=== PATIENT | male | born 1950 | race Hispanic/Latino ===

== ENCOUNTER 2018-10-31 20:16 | Emergency (ER) | payer MEDICARE ==
[~2018-10-31] VITALS: Ht 170.2 cm; Wt 104.3 kg
--- OUTSIDE RECORDS SUMMARY | 2018-10-31 20:20 | XMS REPORT | Continuity of Care Document ---
Author Author [employer] Address Unknown Phone Unavailable Care Team Providers Care Quality Process Lead Name Role Phone [employer] Unavailable Unavailable Problems Problem Status Onset Date Classification Date Reported Comments Source EDEMA Active 12/05/2012 Condition 12/05/2012 Medical Group DIABETES MELLITUS Active 12/05/2012 Condition 12/05/2012 Medical Group HYPERTENSION Active 12/05/2012 Condition 12/05/2012 Medical Group Medications Medication Details Route Status Patient Instructions Ordering Provider Order Date Source CARVEDILOL 6.25 MG TABS 1 PO BID Active 12/06/2012 Medical Group LISINOPRIL 40 MG TABS 1 po qd Active 12/04/2012 Medical Group AMLODIPINE BESYLATE 10 MG TABS 1 po qd Active 12/04/2012 Medical Group METFORMIN HCL 1000 MG TABS 1 po bid Active 12/04/2012 Medical Group LYRICA 100 MG CAPS 1 po tid Active 12/04/2012 Medical Group VICTOZA 18 MG/3ML SOLN 30 before lunch Active 12/04/2012 Medical Group CRESTOR 10 MG TABS 1 po qhs Active 12/04/2012 Medical Group LANTUS SOLOSTAR 100 UNIT/ML SOLN 60 units inj qhs Active 12/04/2012 Medical Group APIDA 10MG 1 before dinner Active 12/04/2012 [facility] Allergies, Adverse Reactions, Alerts No Known Medication Allergies Immunizations No Data Provided for This Section Results No Data Provided for This Section Pathology Reports No Data Provided for This Section Diagnostic Reports No Data Provided for This Section Consultation Notes No Data Provided for This Section Discharge Summaries No Data Provided for This Section History and Physicals No Data Provided for This Section Vital Signs Vital Sign Value Date Comments Source Height 66 12/05/2012 Medical Group Weight 235 12/05/2012 Medical Group Systolic (mm Hg) 155 12/05/2012 [facility] Diastolic (mm Hg) 87 12/05/2012 [facility] Heart Rate 98 12/05/2012 [facility] Encounters Location Location Details Encounter Type Encounter Number Reason For Visit Attending Provider ADM Date DC Date Status Source [facility] Cardiology [place] Office Visit [id number] Torsten Garcia MD 12/05/2012 12/05/2012 Medical Group Procedures No Data Provided for This Section Assessment and Plan No Data Provided for This Section Plan of Care No Data Provided for This Section Social History No Data Provided for This Section Family History No Data Provided for This Section Advance Directives No Data Provided for This Section Functional Status No Data Provided for This Section
--- OUTSIDE RECORDS SUMMARY | 2018-10-31 20:20 | XMS REPORT | Continuity of Care Document ---
Author Author [facility] Organization [facility] Address Unknown Phone Unavailable Care Team Providers Care Senior Animal Trainer Name Role Phone Torsten Garcia MD, PP Unavailable Insurance Providers Payer name Policy type / Coverage type Policy ID Covered democrat ID Policy Chin KASSI MCDERMOTT Shaye ALLANJuliusKRISTINE (PPO) Encounters Encounter Performer Location Date Office Visit Torsten Garcia MD [facility] Cardiology [place] Dec 05, 2012 Problems Problem Effective Dates Problem Status EDEMA Dec 05, 2012 Active DIABETES MELLITUS Dec 05, 2012 Active HYPERTENSION Dec 05, 2012 Active Procedures Date Description Comments Dec 05, 2012 smoking status former smoker Medications Medication Instructions Start Date Status LISINOPRIL 40 MG TABS 1 po qd Dec 04, 2012 Active AMLODIPINE BESYLATE 10 MG TABS 1 po qd Dec 04, 2012 Active METFORMIN HCL 1000 MG TABS 1 po bid Dec 04, 2012 Active LYRICA 100 MG CAPS 1 po tid Dec 04, 2012 Active VICTOZA 18 MG/3ML SOLN 30 before lunch Dec 04, 2012 Active CRESTOR 10 MG TABS 1 po qhs Dec 04, 2012 Active LANTUS SOLOSTAR 100 UNIT/ML SOLN 60 units inj qhs Dec 04, 2012 Active APIDA 10MG 1 before dinner Dec 04, 2012 Active CARVEDILOL 6.25 MG TABS 1 PO BID Dec 06, 2012 Active Vital Signs Date Description Test Result Dec 05, 2012 height E&M - 8302-2 HEIGHT 66 in Dec 05, 2012 weight E&M - 3141-9 WEIGHT 235 lb Dec 05, 2012 blood pressure, systolic, sitting, left arm BP SYS SIT L 155 mm Hg Dec 05, 2012 blood pressure, diastolic, sitting, left arm BP ABRAHAM SIT L 87 mm Hg Dec 05, 2012 pulse rate, sitting, left PULSE SIT L 98 /min Dec 05, 2012 blood pressure, systolic - 8480-6 BP SYSTOLIC 155 mm Hg Dec 05, 2012 pulse rate E&M - 8867-4 PULSE RATE 98 /min Dec 05, 2012 blood pressure, diastolic - 8462-4 BP DIASTOLIC 87 mm Hg
--- OUTSIDE RECORDS SUMMARY | 2018-10-31 20:20 | XMS REPORT ---
[facility] Address Unknown Phone Unavailable Care Team Providers Care Rv Detailer Name Role Phone Unavailable Unavailable Payers Payer Name Policy Type Policy Number Effective Date Expiration Date Problems This patient has no known problems. Allergies, Adverse Reactions, Alerts Allergy Name Allergy Type Status Severity Reaction(s) Onset Date Inactive Date Treating Clinician Comments No Known Allergies DA Active U 2018-01-16 00:00:00 Medications This patient has no known medications. Encounters Start Date/Time End Date/Time Encounter Type Admission Type Attending Clinicians Care Facility Care Department Encounter ID 2018-07-29 11:07:00 2018-07-29 11:07:00 Emergency E [facility] [id number] Results Test Description Test Time Test Comments Text Results Atomic Results Result Comments - XR CHEST 2 V 2018-06-26 11:58:00 Patient Name: CAYDEN QUEZADA Unit No: [id number] EXAMS: CPT CODE: [id number] XR CHEST 2 V 75339 Location code: B2 HISTORY: Cough, hypertension TECHNIQUE: Frontal and lateral views of the chest were obtained. FINDINGS: The cardiomediastinal silhouette is minimally enlarged. The trachea is midline. The lungs are clear. There is no effusion or pneumothorax. The bones are intact. IMPRESSION: Minimal cardiomegaly, without acute pulmonary process. at 1158 Reported and signed by: Darryl Mckeon M.D. CC: Kaci Victoria DO Technologist: Tricia Galicia RT(R) Transcrpt Date/Tm/Trnsp: 06/26/2018 ([id number]) [email or web address] Orig Print D/T: S: 06/26/2018 ([id number]) CLAUDIA Guillen NAME: [place] [address] PHYS: [place] [address] : 1950 AGE: 68 SEX: M LOC: [facility] PHONE #: [phone] EXAM DATE: 06/26/2018 STATUS: REG CLI FAX #: [phone] RADIOLOGY NO: [id number] PAGE 1 Signed Report
[2018-10-31] MEDS: HYDROCODONE/APAP 10MG-325MG TAB PO ONE (21:00)
--- NOTE | 2018-10-31 22:22 | Diagnostic Imaging Report ---
SHOULDER RIGHT COMPLETE - 3 views HISTORY: Pain COMPARISON: None available. FINDINGS: Bones: No acute displaced fracture. Osseous alignment is within normal limits. Joints: Mild degenerative changes of the right glenohumeral joint. Soft tissues: The soft tissues appear unremarkable. IMPRESSION: No acute radiographic abnormality. Signed by: Dr. Darline Barkley M.D. on 10/31/2018 10:18 PM
--- NOTE | 2018-10-31 22:22 | Diagnostic Imaging Report ---
WRIST COMPLETE LEFT, HAND 3+ VIEWS LEFT, FOREARM LEFT 2 VIEW - 3 views HISTORY: Pain status post fall. COMPARISON: None available. FINDINGS: Bones: No acute displaced fracture. Osseous alignment is within normal limits. Joints: Mild degenerative changes of the first carpometacarpal joint. Soft tissues: Vascular calcifications. IMPRESSION: No acute radiographic abnormality. Signed by: Dr. Darline Barkley M.D. on 10/31/2018 10:19 PM
--- NOTE | 2018-10-31 22:22 | Diagnostic Imaging Report ---
KNEE RIGHT THREE VIEWS - 3 views HISTORY: Pain. Fall. COMPARISON: None available. FINDINGS: Bones: No acute displaced fracture. Osseous alignment is within normal limits. Joints: The joint spaces are well-maintained. Soft tissues: Vascular calcifications. IMPRESSION: No acute radiographic abnormality. Signed by: Dr. Darline Barkley M.D. on 10/31/2018 10:18 PM
[2018-10-31] MEDS ORDERED: DIAZEPAM 2 MG TAB PO ONE (23:15)
[2018-10-31] MEDS ORDERED: NAPROXEN250 MG PO (23:55)
[2018-10-31] MEDS ORDERED: ROBAXIN-750750 MG PO (23:55)
[2018-11-01 01:01] VITALS: BP 151/67
== END 2018-11-01 01:00 | disposition home or self-care (01) ==
LOC: ER 20:16
DX: S83.411A Sprain of medial collateral ligament of right knee, initial encounter (principal); M25.511 Pain in right shoulder; M25.532 Pain in left wrist; W17.89XA Other fall from one level to another, initial encounter; Y93.01 Activity, walking, marching and hiking; Y92.488 Other paved roadways as the place of occurrence of the external cause
CPT/HCPCS: 99283

== ENCOUNTER 2018-12-22 01:39 | Emergency (ER) | payer MEDICARE ==
[~2018-12-22] VITALS: Ht 170.2 cm; Wt 104.3 kg
[~2018-12-22 01:39] MED LIST: NAPROXEN250 MG PO; ROBAXIN-750750 MG PO
--- OUTSIDE RECORDS SUMMARY | 2018-12-22 01:41 | XMS REPORT | Continuity of Care Document ---
Author Author [employer] Address Unknown Phone Unavailable Care Team Providers Care Geoscience Specialist Name Role Phone [employer] Unavailable Unavailable Problems Problem Status Onset Date [...] APIDA 10MG 1 before dinner Active 12/04/2012 [facility] Allergies, Adverse Reactions, Alerts No Known [...] Group Systolic (mm Hg) 155 12/05/2012 [facility] Diastolic (mm Hg) 87 12/05/2012 [facility] Heart Rate 98 12/05/2012 [facility] Encounters Location Location Details Encounter Type Encounter Number Reason For Visit Attending Provider ADM Date DC Date Status Source [facility] Cardiology [place] Office Visit [id number] Torsten Garcia MD 12/05/2012 12/05/2012 Medical Group [...]
[2018-12-22] MEDS ORDERED: SODIUM CHLORIDE 0.9% 1000ML 1,000 ML IV STA (02:32)
[2018-12-22] MEDS ORDERED: INSULIN REGULAR, HUMAN 100 UNIT/1 ML 3ML VIAL IV ONE (02:45)
[2018-12-22 03:24] LABS: ANION GAP 15.6 mmol/L (8-16); CALCIUM 9.1 mg/dL (8.4-10.2); CREATININE, SERUM 3.4 mg/dL (0.72-1.25); POTASSIUM 4.6 mmol/L (3.5-5.1)
[2018-12-22 04:21] VITALS: BP 144/73
== END 2018-12-22 04:38 | disposition home or self-care (01) ==
LOC: ER 01:39
DX: E11.65 Type 2 diabetes mellitus with hyperglycemia (principal); R51 Headache
CPT/HCPCS: 36415; 80048; 99283; J1817; J7030

== ENCOUNTER 2019-05-18 10:32 | Emergency (ER) | payer MEDICARE ==
[~2019-05-18] VITALS: Ht 170.2 cm; Wt 104.3 kg
[2019-05-18] MEDS ORDERED: HYDROCODONE/APAP 5MG-325MG TAB PO ONE (10:45)
[2019-05-18] MEDS ORDERED: LIDOCAINE 4% PATCH TP STA (10:47)
--- NOTE | 2019-05-18 11:57 | Diagnostic Imaging Report ---
EXAMINATION: CHEST 2 VIEWS, RIBS UNILAT W/CXR INDICATION: ^R/O PNA. Left-sided anterior lateral 8 rib fracture COMPARISON: None FINDINGS: PA and lateral views TUBES and LINES: None. LUNGS: Lungs are well inflated. There is no evidence of pneumonia or pulmonary edema. PLEURA: No pleural effusion or pneumothorax. HEART AND MEDIASTINUM: The cardiomediastinal silhouette is unremarkable. BONES AND SOFT TISSUES: No acute osseous lesion. Soft tissues are unremarkable. UPPER ABDOMEN: No free air under the diaphragm. IMPRESSION: No acute thoracic abnormality. No distracted fracture seen. Signed by: Karlo Cherry MD on 05/18/2019 11:54 AM
[2019-05-18 13:51] VITALS: BP 171/85
== END 2019-05-18 13:54 | disposition home or self-care (01) ==
LOC: ER 10:32
DX: R07.89 Other chest pain (principal); R05 Cough; I12.0 Hypertensive chronic kidney disease with stage 5 chronic kidney disease or end stage renal disease; E11.22 Type 2 diabetes mellitus with diabetic chronic kidney disease; N18.6 End stage renal disease; Z99.2 Dependence on renal dialysis; H54.8 Legal blindness, as defined in USA
CPT/HCPCS: 71046; 71101; 99283

== ENCOUNTER 2019-08-08 23:26 | Observation (INO) | payer MEDICARE, OTHER ==
[~2019-08-08] VITALS: Ht 167.6 cm; Wt 109.3 kg
--- OUTSIDE RECORDS SUMMARY | 2019-08-08 23:28 | XMS REPORT | Continuity of Care Document ---
Author Author [employer] CAYDEN Torres Organization [employer] Address Unknown Phone Unavailable Care Team Providers Care Agricultural Service Worker Name Role Phone [employer] Unavailable Un available Problems Problem Status Onset Date Classification Date Reported Comments Source EDEMA Active 12/05/2012 Condition 12/05/2012 Medical Group DIABETES MELLITUS Active 12/05/2012 Condition 12/05/2012 Medical Group HYPERTENSION Active 12/05/2012 Condition 12/05/2012 [facility] Medications Medication Details Route Status Patient Instructions Ordering Provider Order Date Source CARVEDILOL 6.25 MG TABS 1 PO B ID Active 12/06/2012 Medical Group LISINOPRIL 40 MG TABS 1 po qd Active 12/04/2012 Medical Group AMLODIPINE BESYLATE 10 MG TABS 1 po qd Active 12/04/2012 Medical Group METFORMIN HCL 1000 MG TABS 1 p o bid Active 12/04/2012 [facility] LYRICA 100 MG CAPS 1 po tid Active 12/04/2012 Medical Group VICTOZA 18 MG/3ML SOLN 30 befo re lunch Active 12/04/2012 Medical Group CRESTOR 10 MG TABS 1 po qhs Active 12/04/2012 Medical Group LANTUS SOLOSTAR 100 UNIT/ML SOLN 60 units inj qhs Active 12/04/2012 Medical Group APIDA 10MG 1 before dinner Active 12/04/2012 [facility] Allergies, Adverse Reactions, Alerts No [...] Sign Value Date Comments Source Height 66 0 12/05/2012 Medical Group Weight 235 12/05/2012 Medical Group Systolic (mm Hg) 155 12/05/2012 Medical Group Diastolic (mm Hg) 87 12/05/2012 [facility] Heart Rate 98 12/05/2012 Medical Group Encounters Location Location Details Encounter Type Encounter Number Reason For Visit Attending Provider ADM Date DC Date Status Source [facility] Cardiology [place] Office Visit [id number] Torsten Garcia MD 12/05/2012 12/05/2012 [facility] Procedures No Data Provided for This Section [...]
[2019-08-08] MEDS ORDERED: HYDRALAZINE HCL 20 MG/ML VIAL IV STA (23:54)
[2019-08-09] VITALS (8 sets, daily range): BP systolic 130–176; BP diastolic 62–85
--- NOTE | 2019-08-09 00:07 | Emergency Department Note ---
History of Present Illnes History of Present Illness Chief Complaint: Extremity Trauma/Pain History of Present Illness This is a 69 year old male presents with c/o lower extremity swelling for past 2 weeks, pt states used to be on dialysis but has not required it in almost 3 years. denies chest pain, sob, n/v . Historian: Patient Arrival Mode: Car Onset (how long ago): week(s) (2) Location: bilateral lower extremities Quality: swelling to bilateral lower extremities Severity: moderate Onset quality: gradual Duration (how long): week(s) (2) Timing of current episode: constant Progression: worsening Chronicity: new Relieving factors: none Exacerbating factors: none Associated symptoms: denies other symptoms Treatments prior to arrival: none Past Medical/Family History Physician Review I have reviewed the patient's past medical and family history. Any updates have been documented here. 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 Other Surgery: RT ROTATOR CUFF SPIDER BITE EXTRACTION FROM EHSAN BURNETT SPIDER LEFT AV FISTULA Social History Smoking Cessation: Former smoker Counseling Performed: No Alcohol Use: None Any Illegal Drug Use: No TB Exposure/Symptoms: No Physically hurt or threatened: No Other Last Tetanus: UTD Any Pre-Existing Lines (PICC,: No Is patient up to date on immun: Yes Last Flu: utd Last Pneumovax: denies Review of Systems Review of Systems Constitutional: no symptoms EENTM: no symptoms Cardiovascular: no symptoms Respiratory: no symptoms Gastrointestinal: no symptoms Genitourinary: no symptoms Musculoskeletal: as per HPI Neurological: no symptoms Psychological: no symptoms Endocrine: no symptoms Hematological/Lymphatic: no symptoms Review of other systems All other systems reviewed and negative. Physical Exam Related Data Allergies: Coded Allergies: No Known Allergies (Unverified , 10/31/18) Triage Vital Signs Vital Signs Date Time Temp Pulse Resp B/P (MAP) Pulse Ox O2 Delivery O2 Flow Rate FiO2 08/08/19 23:46 97.6 79 17 221/108 94 Vital signs reviewed: Yes Physical Exam CONSTITUTIONAL Constitutional: well-developed, well-nourished HENT HENT: normocephalic, atraumatic, oropharynx clear/moist, nose normal HENT L/R: left ext ear normal, right ext ear normal EYES Eyes: PERRL, conjunctivae normal NECK Neck: ROM normal PULMONARY Pulmonary: effort normal, breath sounds normal CARDIOVASCULAR Cardiovascular: regular rhythm, heart sounds normal, capillary refill normal, normal rate GASTROINTESTINAL Abdominal: soft, nontender, bowel sounds normal GENITOURINARY Genitourinary: exam deferred SKIN Skin: warm, dry MUSCULOSKELETAL Musculoskeletal: edema (2+), other (av shunt lue +thrill and bruit) NEUROLOGICAL Neurological: alert, oriented x 3, no gross motor or sensory deficits PSYCHOLOGICAL Psychological: mood/affect normal, judgement normal Results Laboratory Laboratory Laboratory Tests Test 08/09/19 01:35 08/09/19 00:01 White Blood Count 8.14 x10e3/uL (4.8-10.8) Red Blood Count 3.77 x10e6/uL (4.3-5.7) Hemoglobin 11.0 g/dL (14.0-18.0) Hematocrit 34.1 % (38.2-49.6) Mean Corpuscular Volume 90.5 fL (81-99) Mean Corpuscular Hemoglobin 29.2 pg (28-32) Mean Corpuscular Hemoglobin Concent 32.3 g/dL (31-35) Red Cell Distribution Width 13.5 % (11.7-14.4) Platelet Count 189 x10e3/uL (140-360) Neutrophils (%) (Auto) 76.7 % (38.7-80.0) Lymphocytes (%) (Auto) 10.6 % (18.0-39.1) Monocytes (%) (Auto) 6.6 % (4.4-11.3) Eosinophils (%) (Auto) 4.7 % (0.0-6.0) Basophils (%) (Auto) 0.7 % (0.0-1.0) Neutrophils # (Auto) 6.2 (2.1-6.9) Lymphocytes # (Auto) 0.9 (1.0-3.2) Monocytes # (Auto) 0.5 (0.2-0.8) Eosinophils # (Auto) 0.4 (0.0-0.4) Basophils # (Auto) 0.1 (0.0-0.1) Absolute Immature Granulocyte (auto 0.06 x10e3/uL (0-0.1) Sodium Level 137 mmol/L (136-145) Potassium Level 5.0 mmol/L (3.5-5.1) Chloride Level 106 mmol/L (98-107) Carbon Dioxide Level 22 mmol/L (22-29) Anion Gap 14.0 mmol/L (8-16) Blood Urea Nitrogen 37 mg/dL (7-26) Creatinine 3.40 mg/dL (0.72-1.25) Estimat Glomerular Filtration Rate 18 ML/MIN (60-) BUN/Creatinine Ratio 11 (6-25) Glucose Level 304 mg/dL (74-118) Calcium Level 8.1 mg/dL (8.4-10.2) Total Bilirubin 0.3 mg/dL (0.2-1.2) Aspartate Amino Transf (AST/SGOT) 17 IU/L (5-34) Alanine Aminotransferase (ALT/SGPT) 15 IU/L (0-55) Alkaline Phosphatase 89 IU/L (40-150) B-Type Natriuretic Peptide 173.3 pg/mL (0-100) Total Protein 6.1 g/dL (6.5-8.1) Albumin 2.2 g/dL (3.5-5.0) Globulin 3.9 g/dL (2.3-3.5) Albumin/Globulin Ratio 0.6 (0.8-2.0) Lab results reviewed: Yes Imaging Imaging results reviewed: Yes Impressions Procedure: [id number] DX/CHEST SINGLE (PORTABLE) Exam Date: 08/08/19 Exam Time: 2350 REPORT STATUS: Signed EXAMINATION: CHEST SINGLE (PORTABLE) INDICATION: Shortness of breath COMPARISON: 05/18/2019 FINDINGS: AP view TUBES and LINES: None. LUNGS: Lungs are well inflated. Lungs are clear. There is no evidence of pneumonia or pulmonary edema. PLEURA: No pleural effusion or pneumothorax. HEART AND MEDIASTINUM: The cardiomediastinal silhouette is mildly enlarged. BONES AND SOFT TISSUES: No acute osseous lesion. Soft tissues are unremarkable. UPPER ABDOMEN: No free air under the diaphragm. IMPRESSION: Mild cardiomegaly. No acute thoracic abnormality. Signed by: Reba Soares MD on 08/09/2019 12:58 AM Dictated By: REBA SOARES MD Transcribed By: MADDIE on 08/09/1956 COPY TO: FLEX CHÁVEZ MD~ Critical Care Time Subsequent provider I assumed direction of critical care for this patient from another provider of my specialty. Assessment & Plan Assessment & Plan Problems: (1) Pedal edema (2) ESRD (end stage renal disease) Assessment & Plan pt with h/o esrd disease in past requiring dialysis in past but not for past 3 years presents with swelling to both legs for past 2 weeks, pt's bp noted to be extremely high on arrival cbc, cmp, cxr, bnp ordered to eval for renal failure, electrolyte abnormality, chf, pulmonary edema hydralazine 10 mg iv ordered to treat blood pressure PT LABS REVEAL CREATININE 3.4 WHICH IS STABLE FROM PREVIOUS LABS, I SPOKE WITH DR MANE WILL PLACE IN OBS AND GET VENOUS AND ARTERIAL DOPPLER TO EVAL FOR PVD, BLOOD CLOTS Last Vital Signs Date Time Temp Pulse Resp B/P (MAP) Pulse Ox O2 Delivery O2 Flow Rate FiO2 08/08/19 23:46 97.6 79 17 221/108 94 Home Meds Active Scripts Naproxen (NAPROXEN) 250 Mg Tablet, 250 MG PO Q6HR PRN for Mild Pain (1-3) or Fever>100.8, #10 TAB Prov:NOEMY CASTILLO, DO 10/31/18 Methocarbamol (ROBAXIN-750) 750 Mg Tablet, 750 MG PO Q8HR PRN for MUSCLE SPASMS, #20 Prov:NOEMY CASTILLO, 10/31/18 Medications in the ED Hydralazine HCl 10 mg NOW STAT IV ; Start 08/08/19 at 23:54; Stop 08/08/19 at 23:55 FLEX CHÁVEZ MD August 09, 2019 00:07
[2019-08-09 00:21] LABS: BASOPHILS # (AUTO) 0.1 (0.0-0.1); BASOPHILS % 0.7 % (0.0-1.0); EOSINOPHILS # (AUTO) 0.4 (0.0-0.4); EOSINOPHILS % 4.7 % (0.0-6.0); HEMATOCRIT 34.1 % (38.2-49.6); LYMPHOCYTES # (AUTO) 0.9 (1.0-3.2); LYMPHOCYTES % 10.6 % (18.0-39.1); MEAN CORPUSCULAR HEMOGLOBIN 29.2 pg (28-32); MEAN CORPUSCULAR HGB CONC 32.3 g/dL (31-35); MEAN CORPUSCULAR VOLUME 90.5 fL (81-99); MONOCYTES # (AUTO) 0.5 (0.2-0.8); MONOCYTES % 6.6 % (4.4-11.3); NEUTROPHILS # (AUTO) 6.2 (2.1-6.9); NEUTROPHILS % 76.7 % (38.7-80.0); PLATELET COUNT 189 x10e3/uL (140-360); RED BLOOD COUNT 3.77 x10e6/uL (4.3-5.7); RED CELL DISTRIBUTION WIDTH 13.5 % (11.7-14.4)
--- NOTE | 2019-08-09 01:01 | Diagnostic Imaging Report ---
EXAMINATION: CHEST SINGLE (PORTABLE) INDICATION: Shortness of breath COMPARISON: 05/18/2019 FINDINGS: AP view TUBES and LINES: None. LUNGS: Lungs are well inflated. Lungs are clear. There is no evidence of pneumonia or pulmonary edema. PLEURA: No pleural effusion or pneumothorax. HEART AND MEDIASTINUM: The cardiomediastinal silhouette is mildly enlarged. BONES AND SOFT TISSUES: No acute osseous lesion. Soft tissues are unremarkable. UPPER ABDOMEN: No free air under the diaphragm. IMPRESSION: Mild cardiomegaly. No acute thoracic abnormality. Signed by: Ba St MD on 08/09/2019 12:58 AM
[2019-08-09 01:38] LABS: ALBUMIN 2.2 g/dL (3.5-5.0); ALBUMIN/GLOBULIN RATIO 0.6 (0.8-2.0); CALCIUM 8.1 mg/dL (8.4-10.2); CREATININE, SERUM 3.4 mg/dL (0.72-1.25)
[2019-08-09] MEDS ORDERED: DEXTROSE 50% SYRINGE 50 ML IV PRN (02:00)
--- OUTSIDE RECORDS SUMMARY | 2019-08-09 02:09 | XMS REPORT | Continuity of Care Document ---
Author Author [employer] CAYDEN Torres Organization [employer] Address Unknown Phone Unavailable Care Team Providers Care Export Traffic Department Manager Name Role Phone [employer] Unavailable Un available Problems Problem [...] TABS 1 p o bid Active 12/04/2012 [facility] LYRICA 100 MG CAPS 1 po tid Active 12/04/2012 Medical Group VICTOZA 18 MG/3ML SOLN 30 befo re lunch Active 12/04/2012 Medical Group CRESTOR 10 MG TABS 1 po qhs Active 12/04/2012 Medical Group LANTUS SOLOSTAR 100 UNIT/ML SOLN 60 units inj qhs Active 12/04/2012 Medical Group APIDA 10MG 1 before dinner Active 12/04/2012 [facility] Allergies, Adverse Reactions, Alerts No [...] Date DC Date Status Source [facility] Cardiology [place] Office Visit [id number] Torsten Garcia MD 12/05/2012 12/05/2012 [facility] [place] [...]
--- OUTSIDE RECORDS SUMMARY | 2019-08-09 02:09 | XMS REPORT ---
Author Author [facility] t Organization [facility] Address [address] [place] [address] Phone Unavailable Care Team Providers Care Teacher Of [employer] Emotionally Disturbed Name Role Phone NONSTAFF PCP Unavailable Sondra CHÁVEZ Attphys Unavailable Manuelito WATTERS Attphys Unavailable Michael ISRAEL Attphys Unavailable Payers Payer Name Policy Type Policy Number Effective Date Expiration Date Michael ernst [employer] Medicare Advantage [id number] [facility] [employer] Medicare Advantage [id number] [facility] [employer] Medicare Advantage [id number] [facility] Problems This patient has no known problems. Allergies, Adverse Reactions, Alerts Allergy Name Allergy Type Status Severity Reaction(s) Onset Date Inacti ve Date Treating Clinician Comments Source No Known Allergies DA Active U 2018-01-16 00:00:00 [facility] Medications Ordered Medication Name Filled Medication Name Start Date Stop Da te Current Medication? Ordering Clinician Indication Dosage Frequency Signature (SIG) Comments Components Source Methocarbamol (Robaxin-750) 750 Mg Tablet Methocarbamo l (Robaxin-750) 750 Mg Tablet 2018-10-31 00:00:00 Yes Ambica Sandhir Do 750 Every 8 Hours as needed for Muscle Spasms [facility] Naproxen 250 Mg Tablet Naproxen 250 Mg Tablet 2018-10-31 00:00:00 Yes Ambica Sandhir Do 250 Every 6 Hours as needed for Mild Irma n (1-3) Or Fever>100.8 [facility] Procedures Procedure Date / Time Performed Performing Clinician [facility] e X-ray of chest, two views 2019-05-18 00:00:00 CECE ALVAREZ [facility] Encounters Start Date/Time End Date/Time Encounter Type Admission Type Attendi [facility] Care Department Encounter ID Source 2019-05-18 10:32:00 2019-05-18 13:54:00 Departed Emergency Room [address] [facility] [id number] [facility] 2018-12-22 01:39:00 2018-12-22 04:38:[address] [facility] [id number] [facility] 2018-10-31 20:16:00 2018-11-01 01:00:00 Departed Emergency Room [address] [facility] [id number] [facility] 2018-07-29 11:07:00 2018-07-29 11:07:00 Emergency E [facility] [address] [facility] Results Test Description Test Time Test Comments Results Result Comments Source CHEST SINGLE (PORTABLE) 2019-08-09 00:57:00 [facility] [address] [place] [address] Patient Name: CAYDEN QUEZADA JR MR #: [id number] : 1950 Age/Sex: 69/M Req #: [id number] Adm Physician: Ordered by: FLEX CHÁVEZ MD Report #: [id number] Location: ER Room/Bed: Procedure: [id number] DX/CHEST SINGLE (PORTABLE) Exam Date: 08/08/19 Exam Time: 0 REPORT STATUS: Signed EXAMINATION: CHEST SINGLE (PORTABLE) INDICATION: Shortness of breath COMPARISON: 05/18/2019 FINDINGS: AP view TUBES and LINES: None. LUNGS: Lungs are well inflated. Lungs are clear. There is no evidence of pneumonia or pulmonary edema. PLEURA: No pleural effusion or pneumothorax. HEART AND MEDIASTINUM: The cardiomediastinal silhouette is mildly enlarged. BONES AND SOFT TISSUES: No acute osseous lesion. Soft tissues are unremarkable. UPPER ABDOMEN: No free air under the diaphragm. IMPRESSION: Mild cardiomegaly. No acute thoracic abnormality. Signed by: Reba Soares MD on 08/09/2019 12:58 AM Dictated By: REBA SOARES MD Transcribed By: MADDIE on 08/09/1957 COPY TO: FLEX CHÁVEZ MD CHEST 2 VIEWS 2019-05-18 11:52:00 [place] [address] Patient Name: CAYDEN QUEZADA MR #: [id number] : 1950 Age/Sex: 69/M Req #: [id number] Adm Physician: Ordered by: CECE ALVAREZ [employer] Report #: [id number] Location: ER Room/Bed: Procedure: DX/CHEST 2 VIEWS Exam Date: 05/18/19 Exam Time: 1131 REPORT STATUS: Signed EXAMINATION: CHEST 2 VIEWS, RIBS UNILAT W/CXR INDICATION: R/O PNA. Left-sided anterior lateral 8 rib fracture COMPARISON: None FINDINGS: PA and lateral views TUBES and LINES: None. LUNGS: Lungs are well inflated. There is no evidence of pneumonia or pulmonary edema. PLEURA: No pleural effusion or pneumothorax. HEART AND MEDIASTINUM: The cardiomediastinal silhouette is unremarkable. BONES AND SOFT TISSUES: No acute osseous lesion. Soft tissues are unremarkable. UPPER ABDOMEN: No free air under the diaphragm. IMPRESSION: No acute thoracic abnormality. No distracted fracture seen. Signed by: Karlo Schmidt MD on 05/18/2019 11:54 AM Dictated By: KARLO SCHMIDT MD 1154 Transcribed By: MADDIE on 05/18/19 1154 COPY TO: CECE ALVAREZ [employer] RIBS UNILAT W/CXR 2019-05-18 11:52:00 [place] [address] Patient Name: CAYDEN QUEZADA MR #: [id number] : 1950 Age/Sex: 69/M Req #: [id number] Adm Physician: Ordered by: CECE ALVAREZ [employer] Report #: [id number] Location: ER Room/Bed: Procedure: [id number] DX/RIBS UNILAT W/CXR Exam Date: 05/18/19 Exam Time: 1131 REPORT STATUS: Signed EXAMINATION: CHEST 2 VIEWS, RIBS UNILAT W/CXR INDICATION: R/O PNA. Left-sided anterior lateral 8 rib fracture COMPARISON: None FINDINGS: PA and lateral views TUBES and LINES: None. LUNGS: Lungs are well inflated. There is no evidence of pneumonia or pulmonary edema. PLEURA: No pleural effusion or pneumothorax. HEART AND MEDIASTINUM: The cardiomediastinal silhouette is unremarkable. BONES AND SOFT TISSUES: No acute osseous lesion. Soft tissues are unremarkable. UPPER ABDOMEN: No free air under the diaphragm. IMPRESSION: No acute thoracic abnormality. No distracted fracture seen. Signed by: Karlo Schmidt MD on 05/18/2019 11:54 AM Dictated By: KARLO SCHMIDT MD 1154 Transcribed By: MADDIE on 05/18/19 1154 COPY TO: CECE ALVAREZ NP Sodium Level 2018-12-22 03:40:00 Test Item Sodium Level (test code = 2951-2) 135 136-145 [facility] [id number] 03:40:00* Test Item Value Reference Range Interpretation Comments Potassium Level (test code = 2823-3) 4.6 3.5-5.1 [facility] CenterCh[facility]ide Balki9413-35-39 03:40:00* Test Item Value Reference Range Interpretation Comments Chloride Level (test code = 2075-0) 102 98-107 [facility] CenterCar[facility] Dioxide [id number] 03:40:00* Test Item Value Reference Range Interpretation Comments Carbon Dioxide Level (test code = 2028-9) 22 22-29 [facility] CenterAnion [id number] 03:40:00* Test Item Value Reference Range Interpretation Comments Anion Gap (test code = 95595-6) 15.6 8-16 [facility] CenterBlood Urea Ftfnyzto0480-64-27 03:40:00* Test Item Value Reference Range Interpretation Comments Blood Urea Nitrogen (test code = 3094-0) 63 7-26 [facility] CenterCreatinine2019-09-29 03:40:00* Test Item Value Reference Range Interpretation Comments Creatinine (test code = 2160-0) 3.40 0.72-1.25 [facility] CenterBUN/Creatinine Pucth2794-86-35 03:40:00* Test Item Value Reference Range Interpretation Comments BUN/Creatinine Ratio (test code = 3097-3) 19 6-25 [facility] CenterEstimat Glomerular Filtration Rate 2018-12-22 03:40:00* Test Item Value Reference Range Interpretation Comments Estimat Glomerular Filtration Rate (test code = 031818343) 18 >60 Ranges were taken from the National Kidney Disease Education Program and the [facility] literature.Reference ranges:60 or greater: Unyrgq13-86 ( for 3 consecutive months): Chronic kidney disease 15 or less: Kidney failureCHI [facility]edar Park Regional Medical CenterGlucose Jflga0684-75-77 03:40:00* Test Item Value Reference Range Interpretation Comments Glucose Level (test code = MVX1430) 550 74-118 Results repeated and called to JUAN BORRERO at 0339 on 12/22/18 by Morris Franco. Read back and verified.[facility] CenterCalcium Level 2018-12-22 03:40:00* Test Item Value Reference Range Interpretation Comments Calcium Level (test code = 56866-0) 9.1 8.4-10.2 [facility]LD[facility] RIGHT [id number] 22:18:00 [facility] [address] [place] [address] Patient Name: CAYDEN QUEZADA MR #: [id number] : 1950 Age/Sex: 68/M Req #: [id number] Adm Physician: Ordered by: NOEMY ISRAEL MD Report #: [id number] Location: ER Room/Bed: Procedure: DX/S HOULDER RIGHT COMPLETE Exam Date: 10/31/18 Exam Time : 2039 REPORT STATUS: Signed ASHWIN ABEBE RIGHT COMPLETE - 3 views HISTORY: Pain COMPARISON: None available. FINDINGS: Bones: No acute displaced fracture. Osseous alignme nt is within normal limits. Joints: Mild degenerative changes of the righ t glenohumeral joint. Soft tissues: The soft tissues appear unremarkable. IMPRESSION: No acute radiographic abnormality. Signed by: Dr. Darline Mackenzie M.D. on 10/31/2018 10:18 PM Dictated By: SAMMIE MACKENZIE MD, MD 17 Transc ribed By: MADDIE on 10/31/182217 COPY TO: NOEMY ISRAEL MD KNEE RIGHT THREE [id number] 22:17:00 [place] [address] Patient Name: CAYDEN QUEZADA MR #: [id number] : 1950 Age/Sex: 68/M Req #: [id number] [facility] Physician: Ordered by: NOEMY ISRAEL MD Report #: [id number] Location: ER Room/Bed: Procedure: DX/K NEE RIGHT THREE VIEWS Exam Date: 10/31/18 Exam Time: 2039 REPORT STATUS: Signed KNEE RIGHT THREE VIEWS - 3 views HISTORY: Pain. Fall. COMPARISON: None avail able. FINDINGS: Bones: No acute displaced fracture. Osseous al ignment is within normal limits. Joints: The joint spaces are well-mainta ined. Soft tissues: Vascular calcifications. IMPRESSION: No ac eric radiographic abnormality. Signed by: Dr. Darline Mackenzie M.D. on 10/31/2018 10:18 PM Dictated By: SAMMIE MACKENZIE MD, MD Electronically Oliva d By: SAMMIE MACKENZIE MD, MD on 10/31/182217 Transcribed By: MADDIE on 10/31/182217 COPY TO: NOEMY ISRAEL MD FOREARM LEFT 2 [id number] 22:12:00 [place] [address] Patient Name: CAYDEN QUEZADA MR #: [id number] : 1950 Age/Sex: 68/M Req #: [id number] Adm Physician: Ordered by: NOEMY ISRAEL MD Report #: [id number] Location: ER Room/Bed: Procedure: [id number] DX/F OREARM LEFT 2 VIEW Exam Date: 10/31/18 Exam Time: 20 40 REPORT STATUS: Signed WRIST C OMPLETE LEFT, HAND 3+ VIEWS LEFT, FOREARM LEFT 2 VIEW - 3 views HISTORY: P ain status post fall. COMPARISON: None available. FINDINGS: Bones: No acute displaced fracture. Osseous alignment is within normal limits. Joints: Mild degenerative changes of the first carpometacarpal joint. Soft tissues: Vascular calcifications. IMPRESSION: No acute radiog raphic abnormality. Signed by: Dr. Darline Mackenzie M.D. on 10/31/2018 1 0:19 PM Dictated By: SAMMIE MACKENZIE MD, MD 18 Transcribed By: MADDIE on 10/31/182218 COPY TO: NOEMY ISRAEL MD HAND 3+ VIEWS [id number] 22:12:00 [place] [address] Patient Name: CAYDEN QUEZADA MR #: [id number] : 1950 Age/Sex: 68/M Req #: [id number] Adm Physician: Ordered by: NOEMY ISRAEL MD Report #: [id number] Location: ER Room/Bed: Procedure: [id number] DX/H AND 3+ VIEWS LEFT Exam Date: 10/31/18 Exam Time: 204 0 REPORT STATUS: Signed WRIST CO MPLETE LEFT, HAND 3+ VIEWS LEFT, FOREARM LEFT 2 VIEW - 3 views HISTORY: Pa in status post fall. COMPARISON: None available. FINDINGS: Bones: No acute displaced fracture. Osseous alignment is within normal limits. Joints: Mild degenerative changes of the first carpometacarpal joint. Soft tissues: Vascular calcifications. IMPRESSION: No acute radiogr aphic abnormality. Signed by: Dr. Darline Mackenzie M.D. on 10/31/2018 10 :19 PM Dictated By: SAMMIE MACKENZIE MD, MD 18 Transcribed By: MADDIE on 10/31/182218 COPY TO: NOEMY ISRAEL MD WRIST COMPLETE [id number] 22:12:00 [place] [address] Patient Name: CAYDEN QUEZADA MR #: [id number] : 1950 Age/Sex: 68/M Req #: [id number] Adm Physician: Ordered by: NOEMY ISRAEL MD Report #: [id number] Location: ER Room/Bed: Procedure: [id number] DX/W RIST COMPLETE LEFT Exam Date: 10/31/18 Exam Time: 20 40 REPORT STATUS: Signed WRIST C OMPLETE LEFT, HAND 3+ VIEWS LEFT, FOREARM LEFT 2 VIEW - 3 views HISTORY: P ain status post fall. COMPARISON: None available. FINDINGS: Bones: No acute displaced fracture. Osseous alignment is within normal limits. Joints: Mild degenerative changes of the first carpometacarpal joint. Soft tissues: Vascular calcifications. IMPRESSION: No acute radiog raphic abnormality. Signed by: Dr. Darline Mackenzie M.D. on 10/31/2018 1 0:19 PM Dictated By: SAMMIE MACKENZIE MD, MD 18 Transcribed By: MADDIE on 10/31/182218 COPY TO: NOEMY ISRAEL MD - XR CHEST 2 [id number] 11:58:00 Patient Name: CAYDEN QUEZADA Unit No: [id number] EXAMS: CPT CODE: [id number] XR CHEST 2 V 62174 Location code: B2 HISTORY: Cough, hypertension TECHNIQUE: [...] Technologist: Tricia Galicia RT(R) Transcrpt Date/Tm/Trnsp: 06/26/2018 (9429) GuillerminaRK5 Orig Print D/T: S: 06/26/2018 (6983) [facility] NAME: CAYDEN QUEZADA [address] PHYS: [place] [address] : 1950 AGE: 68 SEX: M LOC: Z.RAD PHONE #: [phone] EXAM DATE: 06/26/2018 STATUS: REG CLI FAX #: [phone] RADIOLOGY NO: [id number] PAGE 1 Signed Report
[2019-08-09 02:29] LABS: CLARITY,URINE CLEAR (CLEAR); COLOR,URINE YELLOW (YELLOW)
[2019-08-09 02:30] LABS: BILIRUBIN,URINE NEGATIVE (NEGATIVE); KETONES,URINE NEGATIVE (NEGATIVE); LEUKOCYTE ESTERASE ,URINE NEGATIVE (NEGATIVE); NITRITE,URINE NEGATIVE (NEGATIVE); PROTEIN,URINE DIPSTICK >=300 (NEGATIVE); URINE UROBILINOGEN 0.2 mg/dL (0.2 - 1)
[2019-08-09 02:31] LABS: BACTERIA,URINE FEW /HPF; EPITHELIAL CELLS,URINE FEW /LPF; RENAL EPITHELIAL CELLS,URINE MODERATE
[2019-08-09] MEDS: HYDRALAZINE HCL 20 MG/ML VIAL IV PRN ×2 (04:15→08:38)
[2019-08-09] MEDS ORDERED: FLOMAX0.4 MG PO (04:16)
[2019-08-09] MEDS ORDERED: CARVEDILOL12.5 MG PO (04:16)
[2019-08-09] MEDS ORDERED: BUMETANIDE1 MG PO (04:16)
[2019-08-09] MEDS ORDERED: CRESTOR10 MG PO (04:16)
[2019-08-09] MEDS ORDERED: CALCIUM ACETAT667 MG PO (04:16)
[2019-08-09] MEDS ORDERED: GABAPENTIN300 MG PO (04:16)
[2019-08-09] MEDS ORDERED: FERROUS SULFAT325 MG PO (04:16)
[2019-08-09] MEDS ORDERED: NOVOLIN N100 UNIT/1 SC (04:16)
[2019-08-09] MEDS ORDERED: OMEPRAZOLE40 MG PO (04:16)
[2019-08-09] MEDS ORDERED: INSULIN REGULAR, HUMAN 100 UNIT/1 ML 3ML VIAL SQ SCH (07:30)
[2019-08-09] MEDS ORDERED: ACETAMINOPHEN 325 MG TAB PO PRN (11:00)
[2019-08-09] MEDS ORDERED: ONDANSETRON HCL INJ 2MG/ML 2ML 2 MG/ML VIAL IV PRN (11:00)
[2019-08-09] MEDS ORDERED: FUROSEMIDE INJ 10 MG/ML 4 ML VIAL IV NR (11:15)
[2019-08-09] MEDS: CARVEDILOL 3.125 MG TAB PO SCH ×2 (12:12→23:12)
[2019-08-09] MEDS: NIFEDIPINE CR 30 MG TAB PO SCH (12:12)
[2019-08-09] MEDS: INSULIN LISPRO 100 UNIT/1 ML 3ML VIAL SQ SCH ×3 (12:13→20:32)
[2019-08-09] MEDS: GABAPENTIN 100 MG CAP PO SCH ×2 (13:31→20:53)
[2019-08-09] MEDS: INSULIN GLARGINE 100 UNITS/ML VIAL SQ SCH (13:32)
--- NOTE | 2019-08-09 15:17 | NUR ---
Nutrition Screen Note RD Recommendation for Physician: -Recommend renal/diabetic diet Plan of Care: RD following, monitoring for tolerance and adequacy Nutrition reason for involvement: Diagnosis - ESRD Primary Diagnose(s): ESRD, pedal edema PMH: morbid obesity, diabetes, CKD -last dialysis was 3 years ago (per H/P in chart on unit) Ht: 66 in Wt:250 lb BMI: 40.4 kg/m2 IBW: [address] Assessment: (08/09/19) Chart reviewed. Labs and meds reviewed. Pt is a 69 year old male admitted with ESRD and pedal edema. Pt was sleeping at time of visit; therefore, spoke to RN who reported pt is eating well with >50% meal intake. Unable to obtain weight history from pt at his time and there are no previous weights in chart. No N/V/D/C or chewing/swallowing issues per RN. Will continue to monitor unless consulted sooner. Current Diet: ADA 1800 Malnutrition Evaluation (08/09/19) The patient does not meet criteria for a specified degree of malnutrition at this time. Will re-evaluate at follow-up as appropriate. Diet Education Needs Assessment: RD is available for diet education as needed Nutrition Care Level: low Signed: Cher Ziegler, RD, LD
[2019-08-09] MEDS ORDERED: FUROSEMIDE INJ 10 MG/ML 4 ML VIAL IV ONE (19:00)
[2019-08-09] MEDS: HEPARIN SOD (PORCINE) 5,000 UNIT/ML VIAL SC SCH (20:46)
[2019-08-09] MEDS ORDERED: SIMVASTATIN 40 MG TAB PO SCH (21:00)
[2019-08-10 00:47] VITALS: BP 153/78
[2019-08-10 02:34] LABS: CREATININE,URINE RANDOM 24.73 mg/dL (63-166)
[2019-08-10 05:16] LABS: BASOPHILS % 0.4 % (0.0-1.0); EOSINOPHILS # (AUTO) 0.4 (0.0-0.4); EOSINOPHILS % 4.7 % (0.0-6.0); HEMATOCRIT 34.1 % (38.2-49.6); HEMOGLOBIN 10.8 g/dL (14.0-18.0); LYMPHOCYTES # (AUTO) 1.3 (1.0-3.2); LYMPHOCYTES % 14.7 % (18.0-39.1); MEAN CORPUSCULAR HEMOGLOBIN 29.4 pg (28-32); MEAN CORPUSCULAR HGB CONC 31.7 g/dL (31-35); MEAN CORPUSCULAR VOLUME 92.9 fL (81-99); MONOCYTES # (AUTO) 0.6 (0.2-0.8); MONOCYTES % 7.4 % (4.4-11.3); NEUTROPHILS # (AUTO) 6.2 (2.1-6.9); NEUTROPHILS % 72.2 % (38.7-80.0); PLATELET COUNT 182 x10e3/uL (140-360); RED BLOOD COUNT 3.67 x10e6/uL (4.3-5.7); RED CELL DISTRIBUTION WIDTH 13.7 % (11.7-14.4)
[2019-08-10] MEDS: HYDRALAZINE HCL 20 MG/ML VIAL IV PRN (05:28)
[2019-08-10 05:31] VITALS: BP 168/82
[2019-08-10 05:40] LABS: % IRON SATURATION 16 % (15-50); IRON 36 ug/dL (65-175); TOTAL IRON BINDING CAPACITY 230 ug/dL (261-478); TRANSFERRIN 164 mg/dL (174-364)
[2019-08-10 05:45] LABS: ALBUMIN 2.1 g/dL (3.5-5.0); ALBUMIN/GLOBULIN RATIO 0.6 (0.8-2.0); ANION GAP 11.4 mmol/L (8-16); CALCIUM 8.2 mg/dL (8.4-10.2); CREATININE, SERUM 3.4 mg/dL (0.72-1.25); POTASSIUM 4.4 mmol/L (3.5-5.1)
[2019-08-10 05:55] LABS: CHOL/HDL RATIO 6.6 (3.9-4.7); MAGNESIUM 1.8 MG/DL (1.3-2.1)
[2019-08-10] MEDS: INSULIN LISPRO 100 UNIT/1 ML 3ML VIAL SQ SCH ×3 (07:01→16:30)
[2019-08-10 07:09] LABS: CREATININE,URINE RANDOM 33.15 mg/dL (63-166)
[2019-08-10 07:39] LABS: TOTAL PROTEIN, URINE 414.7 mg/dL (1-14)
[2019-08-10] MEDS: GABAPENTIN 100 MG CAP PO SCH ×2 (08:08→14:32)
[2019-08-10] MEDS: NIFEDIPINE CR 30 MG TAB PO SCH (08:08)
[2019-08-10] MEDS: CARVEDILOL 3.125 MG TAB PO SCH (08:08)
[2019-08-10] MEDS: HEPARIN SOD (PORCINE) 5,000 UNIT/ML VIAL SC SCH (08:09)
[2019-08-10] MEDS: INSULIN GLARGINE 100 UNITS/ML VIAL SQ SCH (08:09)
[2019-08-10 08:24] VITALS: BP 157/77
[2019-08-10 08:39] VITALS: BP 157/77
[2019-08-10] MEDS ORDERED: ASPIRIN 325 MG TAB PO SCH (09:00)
[2019-08-10] MEDS ORDERED: TAMSULOSIN HCL 0.4 MG CAP PO SCH (09:00)
[2019-08-10] MEDS ORDERED: FUROSEMIDE INJ 10 MG/ML 4 ML VIAL IV NR (10:15)
[2019-08-10 12:55] VITALS: BP 126/52
[2019-08-10] MEDS ORDERED: FUROSEMIDE INJ 10 MG/ML 4 ML VIAL IV ONE (14:30)
[2019-08-10] MEDS ORDERED: NIFEDIPINE CR 30 MG TAB PO SCH (17:00)
[2019-08-10 17:14] VITALS: BP 131/71
[2019-08-10] MEDS ORDERED: CARVEDILOL 3.125 MG TAB PO SCH (21:00)
--- NOTE | 2019-08-11 04:48 | Discharge Summary ---
PRIMARY CARE DOCTOR: Solis Julien MD FINAL DIAGNOSIS: Volume overload. SECONDARY DIAGNOSES: 1. Stage 5 chronic kidney disease due to diabetes, likely nephrotic syndrome as well. 2. Morbid obesity. 3. Peripheral vascular disease. 4. Hypertension. CONSULTANTS: None. PROCEDURES/STUDIES PERFORMED: Arterial Doppler and venous Doppler. HISTORY: Per H and P. HOSPITAL COURSE: The patient was diuresed with IV Lasix. He lost more than 10 pounds of water weight. His creatinine remained stable at 3.4. Venous Doppler was negative for DVT in both the legs and also right arm is more swollen than left arm. The patient received heparin subcu for chemical DVT prophylaxis. The patient is told to continue his Bumex when he goes home. The patient will follow up with his primary care doctor in 1 week. I have updated his primary care doctor as well. Of note, his COVID test was negative. The patient was seen and examined today. CONDITION ON DISCHARGE: Improved. DISCHARGE MEDICATIONS: Please see medication reconciliation form. MD TERRA Walden/BONITA /[id number] cc: [facility]
== END 2019-08-10 17:30 | disposition home or self-care (01) ==
LOC: ER 23:26 → ERHOLD 08-09 02:06 → MED/SURG 08-09 03:04
PROVIDERS: ADMIT Internal Medicine; ATTEND Internal Medicine
DX: I12.0 Hypertensive chronic kidney disease with stage 5 chronic kidney disease or end stage renal disease (principal); E66.01 Morbid (severe) obesity due to excess calories; Z68.38 Body mass index [BMI] 38.0-38.9, adult; E11.9 Type 2 diabetes mellitus without complications; E11.22 Type 2 diabetes mellitus with diabetic chronic kidney disease; N18.5 Chronic kidney disease, stage 5; E13.51 Other specified diabetes mellitus with diabetic peripheral angiopathy without gangrene; E11.21 Type 2 diabetes mellitus with diabetic nephropathy
CPT/HCPCS: 36415 ×2; 71045; 80053 ×2; 80061; 81001; 82570; 82948 ×2; 83036; 83540; 83735; 83880; 84156; 84466; 85025 ×2; 87635; 93925; 93970; 93971; 96374; 99284; G0378 ×2; J0360 ×2; J1644 ×2; J1817; J1940 ×2

== ENCOUNTER 2022-01-11 09:44 | Emergency (ER) | payer MEDICARE, OTHER ==
[~2022-01-11] VITALS: Ht 167.6 cm; Wt 109.3 kg
[~2022-01-11 09:44] MED LIST changes: +BUMETANIDE1 MG PO; +CALCIUM ACETAT667 MG PO; +CARVEDILOL12.5 MG PO; +CRESTOR10 MG PO; +FERROUS SULFAT325 MG PO; +FLOMAX0.4 MG PO; +GABAPENTIN300 MG PO; +NOVOLIN N100 UNIT/1 SC; +OMEPRAZOLE40 MG PO
[2022-01-11] MEDS ORDERED: TRAMADOL HCL 50 MG TAB PO ONE (10:00)
[2022-01-11] MEDS ORDERED: CYCLOBENZAPRINE10 MG PO (12:32)
== END 2022-01-11 12:53 | disposition home or self-care (01) ==
LOC: ER 09:47
DX: M54.6 Pain in thoracic spine (principal); S30.0XXA Contusion of lower back and pelvis, initial encounter; W01.0XXA Fall on same level from slipping, tripping and stumbling without subsequent striking against object, initial encounter; Y93.01 Activity, walking, marching and hiking; Y92.89 Other specified places as the place of occurrence of the external cause; I12.0 Hypertensive chronic kidney disease with stage 5 chronic kidney disease or end stage renal disease; E11.22 Type 2 diabetes mellitus with diabetic chronic kidney disease; N18.6 End stage renal disease; Z99.2 Dependence on renal dialysis; H54.8 Legal blindness, as defined in USA; E78.5 Hyperlipidemia, unspecified
CPT/HCPCS: 72128; 72131; 99284